=== PATIENT | male | born 1960 | race Caucasian/White ===

== ENCOUNTER → 2019-07-03 | Outpatient (CLI) | payer MEDICARE | END | disposition home or self-care (01) | LOC: RAH 10:00 | PROVIDERS: ATTEND Family Medicine | DX: M47.12 Other spondylosis with myelopathy, cervical region (principal) | CPT/HCPCS: 70490 ==

== ENCOUNTER → 2020-03-17 | Outpatient (CLI) | payer MEDICARE | END | disposition home or self-care (01) | LOC: RAH 12:29 | PROVIDERS: ATTEND Urology | DX: I70.90 Unspecified atherosclerosis (principal); R31.29 Other microscopic hematuria; J98.11 Atelectasis | CPT/HCPCS: 74176 ==

== ENCOUNTER → 2020-12-08 | Outpatient (CLI) | payer MEDICARE | END | disposition home or self-care (01) | LOC: RAH 11:24 | PROVIDERS: ATTEND Podiatrist | DX: M20.41 Other hammer toe(s) (acquired), right foot (principal); M20.42 Other hammer toe(s) (acquired), left foot; I73.9 Peripheral vascular disease, unspecified | CPT/HCPCS: 93922 ==

== ENCOUNTER 2024-02-21 07:12 | Day surgery (SDC) | payer MEDICARE ==
[2024-02-21] VITALS (12 sets, daily range): BP systolic 89–139; BP diastolic 49–89; PULSE 41–49; RESP 12–20
[~2024-02-21] VITALS: Ht 185.4 cm; Wt 90.7 kg
[~2024-02-21 07:12] MED LIST: ALPR0.5T8 PO; ASCO500T19 PO; ASPI-1197 PO; ATOR10 PO; CALC1TAB2 PO; CITA-108 PO; CLOP-31 PO; FOLI0.4T6 PO; LEVE10006 PO; MIDO10TA PO; MIDODRINE PO; MULT-1259 PO; OMEP20TA20 PO; VITA1CAP PO; ZINC50TA15 PO; [UNRECOGNIZED DRUG - REMARK] PO; vitamin b1 PO; vitamin d3 PO
[2024-02-21] MEDS: 0.9%NACL 1000ML 1,000 ML IV ONE (08:11)
[2024-02-21] MEDS ORDERED: PROPOFOL 10 MG/ML 20ML VIAL IV ONE (09:34)
== END 2024-02-21 11:40 | disposition home or self-care (01) ==
LOC: DAH 07:12 → ENDO 07:12
PROVIDERS: ATTEND Internal Medicine Gastroenterology
DX: R19.5 Other fecal abnormalities (principal); D12.6 Benign neoplasm of colon, unspecified; I25.10 Atherosclerotic heart disease of native coronary artery without angina pectoris; E78.5 Hyperlipidemia, unspecified; F41.9 Anxiety disorder, unspecified; Z86.73 Personal history of transient ischemic attack (TIA), and cerebral infarction without residual deficits; G40.909 Epilepsy, unspecified, not intractable, without status epilepticus; Z79.82 Long term (current) use of aspirin; Z79.899 Other long term (current) drug therapy
CPT/HCPCS: 45378; J7030; J2704; A4620; A4215 ×2; A4223; A4222; A4221; A4663; A4606; J3490

== ENCOUNTER 2024-02-22 06:13 | Day surgery (SDC) | payer MEDICARE ==
[2024-02-22] VITALS (13 sets, daily range): BP systolic 100–139; BP diastolic 57–79; PULSE 44–61; RESP 13–16
[2024-02-22] MEDS: 0.9%NACL 1000ML 1,000 ML IV ONE (06:53)
[2024-02-22] MEDS ORDERED: PROPOFOL 10 MG/ML 20ML VIAL IV ONE (07:18)
== END 2024-02-22 08:55 | disposition home or self-care (01) ==
LOC: ENDO 06:13 → DAH 06:13 → ENDO 08:55
PROVIDERS: ATTEND Internal Medicine Gastroenterology
DX: R19.5 Other fecal abnormalities (principal); D12.3 Benign neoplasm of transverse colon; K64.1 Second degree hemorrhoids; K64.4 Residual hemorrhoidal skin tags; K57.30 Diverticulosis of large intestine without perforation or abscess without bleeding; D12.6 Benign neoplasm of colon, unspecified; I25.10 Atherosclerotic heart disease of native coronary artery without angina pectoris; E78.5 Hyperlipidemia, unspecified; G40.909 Epilepsy, unspecified, not intractable, without status epilepticus; F41.9 Anxiety disorder, unspecified; Z86.73 Personal history of transient ischemic attack (TIA), and cerebral infarction without residual deficits; Z79.82 Long term (current) use of aspirin; Z79.899 Other long term (current) drug therapy
CPT/HCPCS: 45385; J7030 ×2; J2704; A4620; A4215; A4223; A7002; A4222; A4221; A4663; A4606; J3490